=== PATIENT | male | born 1970 | race Caucasian/White ===

== ENCOUNTER → 2016-04-27 | Outpatient (CLI) | payer MEDICARE ==
[~2016-04-27] VITALS: Ht 182.9 cm; Wt 117.9 kg
== END ==
LOC: OPSV 07:48
DX: J45.50 Severe persistent asthma, uncomplicated (principal)
CPT/HCPCS: 96372; J2357

== ENCOUNTER → 2016-05-11 | Outpatient (CLI) | payer MEDICARE ==
[~2016-05-11] VITALS: Ht 182.9 cm; Wt 117.9 kg
== END ==
LOC: OPSV 07:50
DX: J45.50 Severe persistent asthma, uncomplicated (principal)
CPT/HCPCS: 96372; J2357

== ENCOUNTER → 2016-06-04 | Outpatient (CLI) | payer MEDICARE ==
[~2016-06-04] VITALS: Ht 182.9 cm; Wt 117.9 kg
== END ==
LOC: OPSV 07:55
DX: J45.50 Severe persistent asthma, uncomplicated (principal); J45.40 Moderate persistent asthma, uncomplicated
CPT/HCPCS: 96372; J2357

== ENCOUNTER → 2016-06-18 | Outpatient (CLI) | payer MEDICARE ==
[~2016-06-18] VITALS: Ht 182.9 cm; Wt 117.9 kg
== END ==
LOC: OPSV 08:00
DX: J45.50 Severe persistent asthma, uncomplicated (principal); J45.40 Moderate persistent asthma, uncomplicated
CPT/HCPCS: 96372; J2357